=== PATIENT | female | born 1975 | race Two or more races ===

== ENCOUNTER → 2024-07-29 | Outpatient (CLI) | payer OTHER, SELFPAY ==
--- NOTE | 2024-07-29 16:30 | XR_ITS ---
Examination: MRI brain without intravenous contrast. Date and time of exam: July 29, 2024 1702 hours INDICATIONS: Headache and dizziness beginning 10 years ago, blurred vision 1 year, diagnosis trigeminal neuralgia 10 years ago Technique: Multiple axial and sagittal images of the brain obtained. Siemens high-resolution 1.5 Lindy short bore scanners utilized. Sagittal sections, T1-weighted, TR 500, TE 14, are performed. Axial sections proton-density and T2-weighted have been obtained. Inversion recovery axial images, TR 9, 260, TE 111, TI 2500. Diffusion weighted images, axial sections, TR 4800, TE 128, B value 1000 Axial sections, ADC map, TR 4800, TE 128 Findings: Enlargement of the sella turcica is not present. The optic chiasm and infundibular are not remarkable. Prepontine and interpeduncular cisterns are not enlarged. There is no localized enlargement of the medulla or grayson. Fourth ventricle and cerebellar tonsils appear normal in position. No subacute area of hemorrhage density is seen. Mass in the cerebellopontine angle region is not evident. Globes symmetrical. Orbital musculature including medial lateral rectus muscles do not exhibit abnormality. Diffusion-weighted images demonstrate no focus of restricted diffusion. Increased white matter signal evident, punctate focus increased signal right parietal white matter FLAIR image 15 and right frontal white matter FLAIR image 16 and 17 as well as left frontal white matter FLAIR image 18 Mass effect upon the ventricular system is not identified. Impression: Scattered punctate foci increased signal in the cerebral white matter, demyelinating disease pattern
== END | disposition home or self-care (01) ==
PROVIDERS: PCP Family Medicine; Referring Provider Psychiatry & Neurology Neurology; Visit Provider Psychiatry & Neurology Neurology
DX: R90.82 White matter disease, unspecified (principal)
CPT/HCPCS: 70551